=== PATIENT | female | born 1950 | race Two or more races ===

== ENCOUNTER 2017-08-10 15:57 | Inpatient (IN) | payer OTHER ==
[2017-08-10] MEDS ORDERED: SODIUM CHLORIDE 0.9% 1000 ML INFUS.BAG IV ONE (16:19)
--- NOTE | 2017-08-10 16:21 | PDOC ---
Rapid Medical Evaluation Chief Complaint: Wound Infection Time Seen by Provider: 08/10/17 16:17 Medical Evaluation: Allergies Allergy/AdvReac Type Severity Reaction Status Date / Time Penicillins Allergy Verified 08/10/17 16:16 08/10/17 16:17 I have performed a brief in-person evaluation of this patient. The patient presents with a chief complaint of: diabetic foot ulcer x > 1 month , sent in from wound care for admission, R big toe and foot, denies fever, chills, N/V/D Pertinent physical exam findings: VSS I have ordered the following: labs, ekg The patient will proceed to the ED for further evaluation. Discharge Disposition - Diagnosis Wound infection - Referrals - Patient Instructions - Post Discharge Activity
[2017-08-10 19:06] LABS: BASO % 0.4 % (0-2.0); EOS % 1.3 % (0-4.5); HEMOGLOBIN 12.7 GM/dL (10.7-15.3); LYMPH % 43.2 % (8-40); MCH 29.3 pg (25.7-33.7); MCHC 33.5 g/dl (32.0-36.0); MEAN CELL VOLUME 87.5 fl (80-96); MEAN PLT VOLUME 8.6 fl (7.5-11.1); MONO % 8.3 % (3.8-10.2); NEUT % 46.8 % (42.8-82.8); PLATELET COUNT 282 K/MM3 (134-434); RBC 4.34 M/mm3 (3.60-5.2); RDW 14.3 % (11.6-15.6); WHITE BLOOD COUNT 10.6 K/mm3 (4.0-10.0)
[2017-08-10] MEDS ORDERED: CLINDAMYCIN 600MG PREMIX IVPB 600 MG/50 ML BAG IVPB ONE ×2 (19:22→20:02)
[2017-08-10 19:33] LABS: INR 1.11 (0.82-1.09); PROTHROMBIN TIME (PATIENT) 12.5 SEC (9.98-11.88)
[2017-08-10 19:35] LABS: ACTIVATED PTT 29.8 SECONDS (26.9-34.4)
[2017-08-10 19:42] LABS: ALBUMIN 3.8 g/dl (3.4-5.0); ANION GAP 8 (8-16); BILIRUBIN,TOTAL 1.1 mg/dL (0.2-1.0); BLOOD UREA NITROGEN 22 mg/dL (7-18); CHLORIDE 98 mmol/L (98-107); CO2 25 mmol/L (21-32); CREATININE 1.3 mg/dL (0.55-1.02); SGOT/AST 20 U/L (15-37); SGPT/ALT 34 U/L (12-78); SODIUM 131 mmol/L (136-145); TOT PROT 8.1 g/dl (6.4-8.2)
[2017-08-10 19:43] LABS: ALK PHOS 104 U/L (45-117)
[2017-08-10 19:46] LABS: GLUCOSE,RANDOM 490 mg/dL (74-106)
[2017-08-10] MEDS ORDERED: SODIUM CHLORIDE 1,000 ML IV STA (20:31)
--- NOTE | 2017-08-10 21:20 | PDOC ---
History of Present Illness - General History Source: Patient Exam Limitations: Language Barrier - History of Present Illness Initial Comments: 08/10/17 21:26 The patient is a 67 year old female, with a significant past medical history of diabetes, bipolar/schizophrenia, who presents to the emergency department sent by wound care for evaluation of a non-healing ulcer. The patient had this wound to her right great toe for about a month. The patient states she was sent for admission to have an MRI and rule out osteomyelitis. The patient denies chest pain, shortness of breath, headache and dizziness. The patient denies fever, chills, nausea, vomit, diarrhea and constipation. The patient denies dysuria, frequency, urgency and hematuria. Allergies: Penicillins PCP - Dr. Mckinnon <Rachael Hartley - Last Filed: 08/10/17 21:25> <Erin Marcus - Last Filed: 08/10/17 21:46> - General Chief Complaint: Wound Infection Stated Complaint: PCP SENT FOR ADMIN Time Seen by Provider: 08/10/17 16:17 Past History <Rachael Hartley - Last Filed: 08/10/17 21:25> - Past Medical History COPD: No Diabetes: Yes Psychiatric Problems: Yes (schizoph and paranoid) - Suicide/Smoking/Psychosocial Hx Smoking History: Never smoked Have you smoked in the past 12 months: No Information on smoking cessation initiated: No Hx Alcohol Use: No Drug/Substance Use Hx: No Substance Use Type: None <Erin Marcus - Last Filed: 08/10/17 21:46> - Past Medical History Allergies/Adverse Reactions: Allergies Allergy/AdvReac Type Severity Reaction Status Date / Time Penicillins Allergy Verified 08/10/17 16:16 Home Medications: Ambulatory Orders Aspirin 81 mg PO DAILY 08/10/17 Insulin (Novolog) [Novolog Flexpen] 0 units SQ ACHS PRN 08/10/17 Insulin Glargine,Hum.rec.anlog [Lantus Solostar PEN (NF)] 60 units SQ BID Metformin HCl [Glucophage] 1,000 mg PO DAILY 08/10/17 Risperidone Microspheres [Risperdal Consta] 25 mg IM ASDIR 08/10/17 Rosuvastatin [Crestor -] 5 mg PO HS 08/10/17 Sitagliptin Phosphate [Januvia] mg PO DAILY@0700 08/10/17 Review of Systems - Review of Systems Able to Perform ROS?: Yes Comments:: 08/10/17 21:26 CONSTITUTIONAL: Absent: fever, no chills, no fatigue EYES: Absent: visual changes ENT: Absent: ear pain, no sore throat CARDIOVASCULAR: Absent: chest pain, no palpitations RESPIRATORY: Absent: cough, no SOB GI: Absent: abdominal pain, no nausea, no vomiting, no constipation, no diarrhea GENITOURINARY: Absent: dysuria, no frequency, no hematuria MUSCULOSKELETAL: (+) pain to right toes. Absent: back pain, no myalgia SKIN: (+) non-healing wound to right foot. Absent: rash NEURO: Absent: headache <Rachael Hartley - Last Filed: 08/10/17 21:25> *Physical Exam - Vital Signs Last Vital Signs Temp Pulse Resp BP Pulse Ox 97.4 F L 71 18 149/84 100 08/10/17 16:16 08/10/17 16:16 08/10/17 16:16 08/10/17 16:16 08/10/17 16:16 - Physical Exam Comments: 08/10/17 21:27 GENERAL: Well-appearing, well-nourished. No apparent distress. HEENT: Normocephalic, atraumatic. PERRL, EOM intact. CARDIOVASCULAR: Normal S1, S2. Regular rate and rhythm. PULMONARY: Clear to auscultation bilaterally. ABDOMEN: Soft, non-distended, non-tender. EXTREMITIES: Normal ROM in all four extremities. No gross deformities. SKIN: (+) wound to right 2nd toe without increased warmth, erythema, or tenderness. No drainage or fluctuance. Warm, dry. No rash NEUROLOGICAL: No focal neurological deficits. <Rachael Hartley - Last Filed: 08/10/17 21:25> - Vital Signs Last Vital Signs Temp Pulse Resp BP Pulse Ox 97.4 F L 71 18 149/84 100 08/10/17 16:16 08/10/17 16:16 08/10/17 16:16 08/10/17 16:16 08/10/17 16:16 <Erin Marcus - Last Filed: 08/10/17 21:46> ED Treatment Course - LABORATORY CBC & Chemistry Diagram: 08/10/17 18:43 08/10/17 18:43 - ADDITIONAL ORDERS Additional order review: Laboratory Results 08/10/17 08/10/17 08/10/17 18:43 18:43 18:43 PT with INR 12.50 H INR 1.11 PTT (Actin FS) 29.8 Sodium 131 L Potassium 5.0 Chloride 98 Carbon Dioxide 25 Anion Gap 8 BUN 22 H Creatinine 1.3 H Creat Clearance w eGFR 40.98 Random Glucose 490 H* Calcium 9.0 Total Bilirubin 1.1 H AST 20 ALT 34 Alkaline Phosphatase 104 C-Reactive Protein 0.5 H Total Protein 8.1 Albumin 3.8 08/10/17 18:43 RBC 4.34 MCV 87.5 MCHC 33.5 RDW 14.3 MPV 8.6 Neutrophils % 46.8 Lymphocytes % 43.2 H Monocytes % 8.3 Eosinophils % 1.3 Basophils % 0.4 - Medications Given in the ED: ED Medications Discontinued Medications Generic Name Dose Route Start Last Admin Trade Name Freq PRN Reason Stop Dose Admin Clindamycin Phosphate 600 mg in 50 mls @ 100 mls/hr 08/10/17 19:22 08/10/17 20:00 Cleocin 600 Mg Premix Ivpb - IVPB 08/10/17 19:51 100 mls/hr ONCE ONE Administration Sodium Chloride 1,000 ml 08/10/17 16:19 08/10/17 19:02 Normal Saline - IV 08/10/17 16:20 1,000 ml ONCE ONE Administration <Rachael Hartley - Last Filed: 08/10/17 21:25> - LABORATORY CBC & Chemistry Diagram: 08/10/17 18:43 08/10/17 18:43 - ADDITIONAL ORDERS Additional order review: Laboratory Results 08/10/17 08/10/17 08/10/17 18:43 18:43 18:43 PT with INR 12.50 H INR 1.11 PTT (Actin FS) 29.8 Sodium 131 L Potassium 5.0 Chloride 98 Carbon Dioxide 25 Anion Gap 8 BUN 22 H Creatinine 1.3 H Creat Clearance w eGFR 40.98 Random Glucose 490 H* Calcium 9.0 Total Bilirubin 1.1 H AST 20 ALT 34 Alkaline Phosphatase 104 C-Reactive Protein 0.5 H Total Protein 8.1 Albumin 3.8 08/10/17 18:43 RBC 4.34 MCV 87.5 MCHC 33.5 RDW 14.3 MPV 8.6 Neutrophils % 46.8 Lymphocytes % 43.2 H Monocytes % 8.3 Eosinophils % 1.3 Basophils % 0.4 - RADIOLOGY Radiology Studies Ordered: Category Date Time Status CHEST - PA [RAD] Stat Radiology 08/10/17 19:17 Ordered - Medications Given in the ED: ED Medications Discontinued Medications Generic Name Dose Route Start Last Admin Trade Name Norma PRN Reason Stop Dose Admin Clindamycin Phosphate 600 mg in 50 mls @ 100 mls/hr 08/10/17 19:22 08/10/17 20:00 Cleocin 600 Mg Premix Ivpb - IVPB 08/10/17 19:51 100 mls/hr ONCE ONE Administration Sodium Chloride 1,000 ml 08/10/17 16:19 08/10/17 19:02 Normal Saline - IV 08/10/17 16:20 1,000 ml ONCE ONE Administration <Erin Marcus - Last Filed: 08/10/17 21:46> *DC/Admit/Observation/Transfer - Attestations Scribe Attestion: 08/10/17 21:28 Documentation prepared by Rachael Hartley, acting as medical liaison for Erin Marcus MD <Rachael Hartley - Last Filed: 08/10/17 21:25> - Discharge Dispostion Admit: Yes <Erin Marcus - Last Filed: 08/10/17 21:46> Diagnosis at time of Disposition: Diabetic foot infection, Hyperglycemia - Referrals Referrals: Kwabena Mckinnon MD [Primary Care Provider] - - Patient Instructions - Post Discharge Activity
[2017-08-10] MEDS ORDERED: INSULIN (NOVOLOG) ASPART 100 UNITS/ML 10ML VIAL SQ ONE (21:58)
[2017-08-10] MEDS ORDERED: INSULIN REGULAR HUMAN 100 UNITS/ML *VIAL ONE (22:24)
--- NOTE | 2017-08-10 22:39 | PDOC ---
*Physical Exam - Vital Signs Last Vital Signs Temp Pulse Resp BP Pulse Ox 97.4 F L 71 18 149/84 100 08/10/17 16:16 08/10/17 16:16 08/10/17 16:16 08/10/17 16:16 08/10/17 16:16 ED Treatment Course - LABORATORY CBC & Chemistry Diagram: 08/10/17 18:43 08/10/17 18:43 - ADDITIONAL ORDERS Additional order review: Laboratory Results 08/10/17 08/10/17 08/10/17 18:43 18:43 18:43 PT with INR 12.50 H INR 1.11 PTT (Actin FS) 29.8 Sodium 131 L Potassium 5.0 Chloride 98 Carbon Dioxide 25 Anion Gap 8 BUN 22 H Creatinine 1.3 H Creat Clearance w eGFR 40.98 Random Glucose 490 H* Calcium 9.0 Total Bilirubin 1.1 H AST 20 ALT 34 Alkaline Phosphatase 104 C-Reactive Protein 0.5 H Total Protein 8.1 Albumin 3.8 08/10/17 18:43 RBC 4.34 MCV 87.5 MCHC 33.5 RDW 14.3 MPV 8.6 Neutrophils % 46.8 Lymphocytes % 43.2 H Monocytes % 8.3 Eosinophils % 1.3 Basophils % 0.4 - RADIOLOGY Radiology Studies Ordered: Category Date Time Status CHEST - PA [RAD] Stat Radiology 08/10/17 19:17 Taken - Medications Given in the ED: ED Medications Discontinued Medications Generic Name Dose Route Start Last Admin Trade Name Freq PRN Reason Stop Dose Admin Clindamycin Phosphate 600 mg in 50 mls @ 100 mls/hr 08/10/17 19:22 08/10/17 20:00 Cleocin 600 Mg Premix Ivpb - IVPB 08/10/17 19:51 100 mls/hr ONCE ONE Administration Sodium Chloride 1,000 mls @ 1,000 mls/hr 08/10/17 20:31 08/10/17 20:38 Normal Saline - IV 08/10/17 21:30 1,000 mls/hr ASDIR STA Administration Sodium Chloride 1,000 ml 08/10/17 16:19 08/10/17 19:02 Normal Saline - IV 08/10/17 16:20 1,000 ml ONCE ONE Administration Medical Decision Making - Medical Decision Making 08/10/17 22:29 67 [address] female seen in Dr Glaser's office and sent to wound care for concern of dry gangrene/ostero of right first and second toe -pt came w daughter . Pt speaks Cuban and has PMH significantly for diabetes and schizophrenia and is noncompliant w meds -pt started on antibiotics and is admitted to med/surg Wound care requested rt foot MRI during her admission,consult w Dr Sandra Jerez - *DC/Admit/Observation/Transfer Diagnosis at time of Disposition: Diabetic foot infection, Hyperglycemia - Discharge Dispostion Decision to Admit order Date/Time: Decision to Admit Order Category Date Time Status Decision to Admit to Hospital Routine Admission 08/10/17 21:46 Active - Referrals Referrals: Kwabena Mckinnon MD [Primary Care Provider] - - Patient Instructions - Post Discharge Activity
--- NOTE | 2017-08-10 23:22 | HP ---
CHIEF COMPLAINT: Foot wound PCP: Pratibha HISTORY OF PRESENT ILLNESS: This is a 67 year old female with poorly controlled DM and schizophrenia who presented to the ED from wound clinic for a wound on second toe right foot. The daughter reports the patient has had the wound since she returned from [facility] on 07/17. Pt states that she has a "little" pain. she denies fevers. ER course was notable for: (1) WBC 10.6 (2) Glucose 490 Recent Travel: [facility] from May to 07/17 PAST MEDICAL HISTORY: DM, HLD, schizophrenia PAST SURGICAL HISTORY: uterine surgery for bleeding. Pt is unsure if she had a hysterectomy or not Social History: Smoking: pt denies Alcohol: pt denies Drugs: pt denies Family History: mother alive with heart problems father age 70, DM, CKD, heart siblings with mult medical problems but unclear what 3 children, 1 daughter with schizophrenia. Allergies Penicillins Allergy (Verified 08/10/17 16:16) HOME MEDICATIONS: 3 Medication Instructions Recorded Aspirin 81 mg PO DAILY 08/10/17 Insulin (Novolog) [Novolog Flexpen] 0 units SQ ACHS PRN 08/10/17 Insulin Glargine,Hum.rec.anlog 60 units SQ BID 08/10/17 [Lantus Solostar PEN (NF)] Metformin HCl [Glucophage] 1,000 mg PO DAILY 08/10/17 Risperidone Microspheres 25 mg IM ASDIR 08/10/17 [Risperdal Consta] Rosuvastatin [Crestor -] 5 mg PO HS 08/10/17 Sitagliptin Phosphate [Januvia] mg PO DAILY@0700 08/10/17 REVIEW OF SYSTEMS CONSTITUTIONAL: Absent: fever, chills, diaphoresis, generalized weakness, malaise, loss of appetite, weight change HEENT: Absent: rhinorrhea, nasal congestion, throat pain, throat swelling, difficulty swallowing, mouth swelling, ear pain, eye pain, visual changes CARDIOVASCULAR: Absent: chest pain, syncope, palpitations, irregular heart rate, lightheadedness , peripheral edema RESPIRATORY: Absent: cough, shortness of breath, dyspnea with exertion, orthopnea, wheezing, stridor, hemoptysis GASTROINTESTINAL: Absent: abdominal pain, abdominal distension, nausea, vomiting, diarrhea, constipation, melena, hematochezia GENITOURINARY: Absent: dysuria, frequency, urgency, hesitancy, hematuria, flank pain, genital pain MUSCULOSKELETAL: Absent: myalgia, arthralgia, joint swelling, back pain, neck pain SKIN: Present: wound right foot Absent: rash, itching, pallor HEMATOLOGIC/IMMUNOLOGIC: Absent: easy bleeding, easy bruising, lymphadenopathy, frequent infections ENDOCRINE: Absent: unexplained weight gain, unexplained weight loss, heat intolerance, cold intolerance NEUROLOGIC: Absent: headache, focal weakness or paresthesias, dizziness, unsteady gait, seizure, mental status changes, bladder or bowel incontinence PSYCHIATRIC: Absent: anxiety, depression, suicidal or homicidal ideation, hallucinations. PHYSICAL EXAMINATION Vital Signs - 24 hr 3 08/10/17 16:16 Temperature 97.4 F L Pulse Rate 71 Respiratory 18 Rate Blood Pressure 149/84 O2 Sat by Pulse 100 Oximetry (%) GENERAL: Awake, alert, and fully oriented, in no acute distress. HEAD: Normal with no signs of trauma. EYES: Pupils equal, round and reactive to light, extraocular movements intact, sclera anicteric, conjunctiva clear. No lid lag. EARS, NOSE, THROAT: Ears normal, nares patent, oropharynx clear without exudates. Moist mucous membranes. NECK: Normal range of motion, supple without lymphadenopathy, JVD, or masses. LUNGS: Breath sounds equal, clear to auscultation bilaterally. No wheezes, and no crackles. No accessory muscle use. HEART: Regular rate and rhythm, normal S1 and S2 without murmur, rub or gallop. ABDOMEN: Soft, nontender, not distended, normoactive bowel sounds, no guarding, no rebound, no masses. No hepatomegaly or splenomegaly. MUSCULOSKELETAL: Normal range of motion at all joints. No bony deformities or tenderness. No CVA tenderness. UPPER EXTREMITIES: 2+ pulses, warm, well-perfused. No cyanosis. No clubbing. No peripheral edema. LOWER EXTREMITIES: 2+ pulses, warm, well-perfused. No calf tenderness. No peripheral edema. NEUROLOGICAL: Cranial nerves II-XII intact. Normal speech. Normal gait. PSYCHIATRIC: Cooperative. Good eye contact. Appropriate mood and affect. SKIN: Warm, dry, normal turgor, no rashes or lesions noted, normal capillary refill. right foot, 2nd toe medial aspect noted with small ulcer, open area 0.3cm x 0.3cm, surrounding hyperkeratotic, dry area 0.8 x 1.3cm Laboratory Results - last 24 hr 3 08/10/17 08/10/17 08/10/17 18:43 18:43 18:43 WBC 10.6 H RBC 4.34 Hgb 12.7 Hct 38.0 MCV 87.5 MCH 29.3 MCHC 33.5 RDW 14.3 Plt Count 282 MPV 8.6 Neutrophils % 46.8 Lymphocytes % 43.2 H Monocytes % 8.3 Eosinophils % 1.3 Basophils % 0.4 PT with INR 12.50 H INR 1.11 PTT (Actin FS) 29.8 Sodium 131 L Potassium 5.0 Chloride 98 Carbon Dioxide 25 Anion Gap 8 BUN 22 H Creatinine 1.3 H Creat Clearance w eGFR 40.98 Random Glucose 490 H* Calcium 9.0 Total Bilirubin 1.1 H AST 20 ALT 34 Alkaline Phosphatase 104 C-Reactive Protein 0.5 H Total Protein 8.1 Albumin 3.8 CXR and Foot XR pending ASSESSMENT/PLAN: 67yF with PMH DM, HLD, schizophrenia presented to the ED from wound care clinic with nonhealing wound to right second toe Diabetic ulcer R 2nd toe - cont clindamycin - Vascular surgery consult - podiatry consult - tighter gluocose control needed - foot xray pending - MRI to r/o osteo ordered. DM - cont home lantus 60u BID - BGM AC/HS with sliding scale novolog HLD - pt on crestor at home, daughter unsure of dose, will start at 5mg, when daughter brings in med list, can adjust DVT PPX - defer as anticipated LOS at this time is less than 48h. reeval if MRI with osteo and LOS extends beyond FEN - tolerating po fluids - BMP in am - diabetic diet. Dispo: Pt currently requires furhter observation and treatment for management of her emergent condition. Visit type - Emergency Visit Emergency Visit: Yes ED Registration Date: 08/10/17 Care time: The patient presented to the Emergency Department on the above date and was hospitalized for further evaluation of their emergent condition. - New Patient This patient is new to me today: Yes Date on this admission: 08/10/17 - Critical Care Critical Care patient: No
[2017-08-10] MEDS ORDERED: RISPERIDONE MICROSPHERES 25 MG/2 ML VIAL IM SCH (23:45)
[2017-08-10] MEDS ORDERED: INSULIN DETEMIR 100 UNITS/ML MDV SQ ONE (23:51)
[2017-08-11] MEDS: INSULIN DETEMIR 100 UNITS/ML MDV SQ SCH ×2 (00:05→10:11)
[2017-08-11] MEDS ORDERED: INSULIN (NOVOLOG) ASPART 100 UNITS/ML 10ML VIAL SQ ONE (01:41)
[2017-08-11] MEDS: CLINDAMYCIN 600MG PREMIX IVPB 600 MG/50 ML BAG IVPB SCH ×3 (03:09→15:52)
[2017-08-11] MEDS ORDERED: CLINDAMYCIN 600MG PREMIX IVPB 600 MG/50 ML BAG IVPB ONE (03:10)
[2017-08-11] MEDS: INSULIN SLIDING SCALE (NOVOLOG) 1 VIAL SQ SCH ×3 (06:59→18:52)
[2017-08-11] MEDS ORDERED: sitaGLIPtin PHOSPHATE 100 MG TABLET (FP) PO SCH (07:30)
[2017-08-11 07:44] LABS: BASO % 0.4 % (0-2.0); EOS % 1.8 % (0-4.5); HEMATOCRIT 39.5 % (32.4-45.2); HEMOGLOBIN 12.9 GM/dL (10.7-15.3); LYMPH % 36.4 % (8-40); MCH 28.4 pg (25.7-33.7); MCHC 32.6 g/dl (32.0-36.0); MEAN PLT VOLUME 8.5 fl (7.5-11.1); MONO % 8.6 % (3.8-10.2); NEUT % 52.8 % (42.8-82.8); PLATELET COUNT 279 K/MM3 (134-434); RBC 4.53 M/mm3 (3.60-5.2); RDW 13.9 % (11.6-15.6); WHITE BLOOD COUNT 7.5 K/mm3 (4.0-10.0)
[2017-08-11 08:07] LABS: CHLORIDE 102 mmol/L (98-107); POTASSIUM 4.4 mmol/L (3.5-5.1); SODIUM 136 mmol/L (136-145)
--- NOTE | 2017-08-11 08:07 | PN ---
Progress Note, Physician Chief Complaint: 67 y.o F with schozophrenia and poorly controlled DM 2 was sent for admission and IV Antibiotics from the [facility]. The week before the patient was seen in the office after return from [facility] with the new foot ulcers-on the bunion and 2nd toe of the right foot. PO Keflex was started and the patient was referred to [facility]. She did not have fevers, leukocytosis or pain. History of Present Illness: Type 2 DM-poorly controlled, non -compliant patient HLD Diabetic retionopathy Schizophrenia ob Risperdal Consta 25 mg IM Q 2 weeks - Current Medication List Current Medications: Active Medications Aspirin (Asa -) 81 mg PO DAILY [facility] Cefazolin Sodium (Ancef 1gm Ivpb (Pre-Docked)) 1 gm IVPB Q8H [facility] Clindamycin Phosphate (Cleocin 600 Mg Premix Ivpb -) 600 mg in 50 mls @ 100 mls /hr IVPB Q6H-IV BLACK Last Admin: 08/11/17 03:09 Dose: 100 mls/hr Insulin Aspart (Novolog Vial Sliding Scale -) 1 vial SQ HS [facility] PRN Reason: Protocol Insulin Aspart (Novolog Vial Sliding Scale -) 1 vial SQ TIDAC [facility] PRN Reason: Protocol Last Admin: 08/11/17 06:59 Dose: 8 unit Insulin Detemir (Levemir Vial) 60 units SQ BID [facility] Last Admin: 08/11/17 00:05 Dose: 60 units Metformin HCl (Glucophage -) 1,000 mg PO BID@0700,1630 [facility] Risperidone (Risperdal Consta 25mg -) 25 mg IM ASDIR [facility] Rosuvastatin Calcium (Crestor -) 5 mg PO HS [facility] Sitagliptin Phosphate (Januvia -) 100 mg PO DAILY@0700 [facility] - Objective Vital Signs: Vital Signs Temperature 97.4 F L 08/10/17 16:16 Pulse Rate 71 08/10/17 16:16 Respiratory Rate 18 08/10/17 16:16 Blood Pressure 149/84 08/10/17 16:16 O2 Sat by Pulse Oximetry (%) 100 08/10/17 16:16 Constitutional: Yes: No Distress, Anxious Eyes: Yes: Conjunctiva Clear, EOM Intact HENT: Yes: Atraumatic, Normocephalic Neck: Yes: Supple, Trachea Midline. No: Decreased ROM, Lymphadenopathy Cardiovascular: Yes: Regular Rate and Rhythm, S1, S2. No: Bradycardia, Tachycardia Respiratory: Yes: Regular, CTA Bilaterally Gastrointestinal: Yes: Normal Bowel Sounds, Soft. No: Abdomen, Obese, Ascites ...Rectal Exam: Yes: Deferred Genitourinary: No: Anuria, Bladder Distention Musculoskeletal: Yes: WNL Extremities: No: Calf Tenderness, Cold, Cyanosis Edema: No Integumentary: Yes: Other (Dry ulcer right 2nd toe and right bunion) Neurological: Yes: Alert, Oriented, Cran Nerves II-XII Intact. No: Aphasia, Asterixis, Ataxia, Confusion, Dysarthria, Facial Droop, Lethargy ...Motor Strength: WNL Psychiatric: Yes: Alert, Oriented. No: Agitated, Suicidal Ideation Labs: CBC, BMP 08/11/17 06:12 INR, PTT INR 1.11 (0.82-1.09) 08/10/17 18:43 Laboratory Results - last 24 hr 08/10/17 08/10/17 08/10/17 18:43 18:43 18:43 WBC 10.6 H RBC 4.34 Hgb 12.7 Hct 38.0 MCV 87.5 MCH 29.3 MCHC 33.5 RDW 14.3 Plt Count 282 MPV 8.6 Neutrophils % 46.8 Lymphocytes % 43.2 H Monocytes % 8.3 Eosinophils % 1.3 Basophils % 0.4 PT with INR 12.50 H INR 1.11 PTT (Actin FS) 29.8 Sodium 131 L Potassium 5.0 Chloride 98 Carbon Dioxide 25 Anion Gap 8 BUN 22 H Creatinine 1.3 H Creat Clearance w eGFR 40.98 POC Glucometer Random Glucose 490 H* Calcium 9.0 Total Bilirubin 1.1 H AST 20 ALT 34 Alkaline Phosphatase 104 C-Reactive Protein Total Protein 8.1 Albumin 3.8 08/10/17 08/11/17 08/11/17 18:43 01:30 06:12 WBC 7.5 RBC 4.53 Hgb 12.9 Hct 39.5 MCV 87.0 MCH 28.4 MCHC 32.6 RDW 13.9 Plt Count 279 MPV 8.5 Neutrophils % 52.8 Lymphocytes % 36.4 Monocytes % 8.6 Eosinophils % 1.8 Basophils % 0.4 PT with INR INR PTT (Actin FS) Sodium Potassium Chloride Carbon Dioxide Anion Gap BUN Creatinine Creat Clearance w eGFR POC Glucometer [phone] Random Glucose Calcium Total Bilirubin AST ALT Alkaline Phosphatase C-Reactive Protein 0.5 H Total Protein Albumin 08/11/17 06:57 WBC RBC Hgb Hct MCV MCH MCHC RDW Plt Count MPV Neutrophils % Lymphocytes % Monocytes % Eosinophils % Basophils % PT with INR INR PTT (Actin FS) Sodium Potassium Chloride Carbon Dioxide Anion Gap BUN Creatinine Creat Clearance w eGFR POC Glucometer [phone] Random Glucose Calcium Total Bilirubin AST ALT Alkaline Phosphatase C-Reactive Protein Total Protein Albumin Problem List - Problems (1) Diabetic foot infection Assessment/Plan: CRP 0.5=unlikely osteo. Vascular F/u Podiatry. Code(s): E11.69 - TYPE 2 DIABETES MELLITUS WITH OTHER SPECIFIED COMPLICATION; L08.9 - LOCAL INFECTION OF THE SKIN AND SUBCUTANEOUS TISSUE, UNSP (2) Hyperglycemia Assessment/Plan: Levemir, short acting Insulin, BGM's Re-start Metformin, Januvia Diabetic diet Code(s): R73.9 - HYPERGLYCEMIA, UNSPECIFIED
[2017-08-11 08:12] LABS: ANION GAP 7 (8-16); BLOOD UREA NITROGEN 18 mg/dL (7-18); CALCIUM 8.6 mg/dL (8.5-10.1); CO2 27 mmol/L (21-32); CREATININE 0.9 mg/dL (0.55-1.02); GLUCOSE,RANDOM 289 mg/dL (74-106); PHOSPHOROUS 3.9 mg/dL (2.5-4.9)
[2017-08-11] MEDS ORDERED: ASPIRIN 81 MG CHEWABLE TABLETS ONE (09:27)
[2017-08-11] MEDS: ASPIRIN 81 MG CHEWABLE TABLETS PO SCH (09:40)
[2017-08-11] MEDS: CEFAZOLIN 1 GM PUSH 1 GM/10 ML DISP.SYRIN IVPUSH SCH ×2 (09:40→18:53)
[2017-08-11] MEDS ORDERED: CLINDAMYCIN PHOSPHATE 600 MG/4 ML VIAL ONE (09:41)
[2017-08-11] MEDS ORDERED: INSULIN DETEMIR 100 UNITS/ML MDV SQ ONE (10:06)
--- NOTE | 2017-08-11 10:15 | EKG ---
Test Reason : Blood Pressure : / mmHG Vent. Rate : 073 BPM Atrial Rate : 073 BPM P-R Int : 182 ms QRS Dur : 070 ms QT Int : 386 ms P-R-T Axes : 053 058 041 degrees QTc Int : 425 ms POOR DATA QUALITY, INTERPRETATION MAY BE ADVERSELY AFFECTED NORMAL SINUS RHYTHM POSSIBLE LEFT ATRIAL ENLARGEMENT CANNOT RULE OUT ANTERIOR INFARCT , AGE UNDETERMINED ABNORMAL ECG NO PREVIOUS ECGS AVAILABLE Confirmed by ROSE STEPHENS, JOSEPH ([id number] on 08/11/2017 10:14:47 AM Referred By: Confirmed By:JOSEPH ROSE MD
--- NOTE | 2017-08-11 14:15 | CONSULT ---
Consult - Past Medical History CRANIOLOGIST: Yes: Peripheral Neuropathy Psych: Yes: Schizophrenia, Other (paranoia) Endocrine: Yes: Diabetes Mellitus - Alcohol/Substance Use Hx Alcohol Use: No - Smoking History Smoking history: Never smoked Have you smoked in the past 12 months: No - Social History Usual Living Arrangement: With Child ADL: Family Assistance History of Recent Travel: No Home Medications - Allergies Allergies/Adverse Reactions: Allergies Allergy/AdvReac Type Severity Reaction Status Date / Time Penicillins Allergy Verified 08/10/17 17:18 - Home Medications Home Medications: Ambulatory Orders Aspirin [ASA -] 81 mg PO DAILY #0 tab.chew 10/26/13 Gabapentin 100 mg PO TID #0 10/26/13 Insulin Glargine,Hum.rec.anlog [Lantus Solostar PEN -] 60 units SQ BID #0 Insulin Lispro [Humalog] 0 unit SQ DAILY #0 10/26/13 Risperidone 3 mg PO HS #0 10/26/13 Rosuvastatin Calcium [Crestor] 5 mg PO DAILY #0 10/26/13 Sitagliptin Phosphate [Januvia -] 100 mg PO DAILY@0700 #0 10/26/13 metFORMIN HCL [Glucophage] 1,000 mg PO BID #0 10/26/13 Aspirin 81 mg PO DAILY 08/10/17 Insulin (Novolog) [Novolog Flexpen] 0 units SQ ACHS PRN 08/10/17 Insulin Glargine,Hum.rec.anlog [Lantus Solostar PEN (NF)] 60 units SQ BID Metformin HCl [Glucophage] 1,000 mg PO DAILY 08/10/17 Risperidone Microspheres [Risperdal Consta] 25 mg IM ASDIR 08/10/17 Rosuvastatin [Crestor -] 5 mg PO HS 08/10/17 Sitagliptin Phosphate [Januvia] mg PO DAILY@0700 08/10/17 Family Disease History - Family Disease History Family Disease History: Diabetes: Father (believes that her father could have had kidney disease, but cannot specify) Physical Exam Vital Signs: Vital Signs Temperature 97.4 F L 08/10/17 16:16 Pulse Rate 71 08/10/17 16:16 Respiratory Rate 18 08/10/17 16:16 Blood Pressure 149/84 08/10/17 16:16 O2 Sat by Pulse Oximetry (%) 100 02/13/18 16:16 Labs: CBC, BMP 08/11/17 06:12 08/11/17 06:12 Assessment/Plan Vascular Surgery 67 y.o F with schozophrenia and poorly controlled DM 2 was sent for admission and IV Antibiotics from the [facility]. The week before the patient was seen in the office after return from [facility] with the new foot ulcers-on the bunion and 2nd toe of the right foot. PO Keflex was started and the patient was referred to [facility]. She did not have fevers, leukocytosis or pain. History of Present Illness: Type 2 DM-poorly controlled, non -compliant patient HLD Diabetic retionopathy Schizophrenia ob Risperdal Consta 25 mg IM Q 2 weeks PE Head - NC/At Lung - CTA heart - RRR abd - soft,nt,nd ext - right foot -- second toe ulcer , medial toe -- down to bone. Toe is deformed. Pt has strong palpable DP pulse. A/P Right second toe ulcer 1. Good strong DP pulse in foot. 2. With toe deformity, strong suspicion of osteo -- MRI is ordered. Will follow Kelvin Jerez DO
[2017-08-11 18:15] VITALS: BMI 27.9
[2017-08-11] MEDS: metFORMIN HCL 500 MG TABLET (FP) PO SCH (18:53)
[2017-08-11] MEDS ORDERED: INSULIN SLIDING SCALE (NOVOLOG) 1 VIAL SQ SCH (22:00)
[2017-08-12] MEDS: CLINDAMYCIN 600MG PREMIX IVPB 600 MG/50 ML BAG IVPB SCH ×2 (01:53→04:33)
[2017-08-12] MEDS: CEFAZOLIN 1 GM PUSH 1 GM/10 ML DISP.SYRIN IVPUSH SCH (01:54)
[2017-08-12] MEDS: INSULIN DETEMIR 100 UNITS/ML MDV SQ SCH ×2 (01:58→17:12)
[2017-08-12] MEDS: ROSUVASTATIN CA 5 MG TABLET (FP) PO SCH ×2 (03:07→21:30)
[2017-08-12] MEDS ORDERED: CLINDAMYCIN 600MG PREMIX IVPB 600 MG/50 ML BAG IVPB SCH (04:30)
[2017-08-12] MEDS: metFORMIN HCL 500 MG TABLET (FP) PO SCH ×2 (06:36→17:12)
[2017-08-12] MEDS: sitaGLIPtin PHOSPHATE 50 MG TABLET PO SCH (06:37)
[2017-08-12 07:34] LABS: BASO % 0.2 % (0-2.0); HEMATOCRIT 37.7 % (32.4-45.2); HEMOGLOBIN 12.4 GM/dL (10.7-15.3); MCH 28.3 pg (25.7-33.7); MCHC 32.8 g/dl (32.0-36.0); MEAN CELL VOLUME 86.2 fl (80-96); MEAN PLT VOLUME 8.2 fl (7.5-11.1); MONO % 8.5 % (3.8-10.2); NEUT % 60.3 % (42.8-82.8); PLATELET COUNT 272 K/MM3 (134-434); RBC 4.38 M/mm3 (3.60-5.2); RDW 14.6 % (11.6-15.6); WHITE BLOOD COUNT 9.1 K/mm3 (4.0-10.0)
[2017-08-12] MEDS: INSULIN SLIDING SCALE (NOVOLOG) 1 VIAL SQ SCH ×4 (08:00→21:36)
[2017-08-12 08:08] LABS: CHLORIDE 105 mmol/L (98-107); POTASSIUM 4.1 mmol/L (3.5-5.1); SODIUM 139 mmol/L (136-145)
[2017-08-12 08:20] LABS: ALBUMIN 3.5 g/dl (3.4-5.0); ALK PHOS 77 U/L (45-117); ANION GAP 9 (8-16); BILIRUBIN,TOTAL 0.6 mg/dL (0.2-1.0); BLOOD UREA NITROGEN 13 mg/dL (7-18); CALCIUM 8.7 mg/dL (8.5-10.1); CO2 25 mmol/L (21-32); CREATININE 0.9 mg/dL (0.55-1.02); GLUCOSE,RANDOM 132 mg/dL (74-106); SGOT/AST 18 U/L (15-37); SGPT/ALT 29 U/L (12-78); TOT PROT 7.7 g/dl (6.4-8.2)
--- NOTE | 2017-08-12 08:34 | PN ---
Progress Note (short form) - Note Progress Note: ID Consult dictated and discussed PMD regarding LLE callous ulcer in this nonadherant diabetic Selected Entries 08/12/17 06:43 Temperature 98.4 F Pulse Rate 83 Respiratory 20 Rate Blood Pressure 153/84 Microbiology 08/10/17 19:45 Blood - Peripheral Venous Blood Culture - Preliminary NO GROWTH OBTAINED AFTER 24 HOURS, INCUBATION TO CONTINUE FOR 4 DAYS. 08/10/17 19:37 Blood - Peripheral Venous Blood Culture - Preliminary NO GROWTH OBTAINED AFTER 24 HOURS, INCUBATION TO CONTINUE FOR 4 DAYS. Laboratory Tests 08/10/17 08/12/17 08/12/17 18:43 06:00 06:00 WBC 9.1 Hgb 12.4 Plt Count 272 ESR Pending C-Reactive Protein 0.5 H As discussed will order MRI though clinically wound seem unimpressive for infection cellulitis For now Ceftriaxone and metronidazole IF MRI neg can be discharged on po antibiotic few days Noe STEPHENS Problem List - Problems (1) Diabetic foot infection Code(s): E11.69 - TYPE 2 DIABETES MELLITUS WITH OTHER SPECIFIED COMPLICATION; L08.9 - LOCAL INFECTION OF THE SKIN AND SUBCUTANEOUS TISSUE, UNSP
--- NOTE | 2017-08-12 08:45 | PN ---
Progress Note, Physician Chief Complaint: ID and vascular surgery consults appreciated. Awaiting NRI foot-r/o osteomyelitis 2nd toe History of Present Illness: Type 2 DM-poorly controlled, non -compliant patient HLD Diabetic retionopathy Schizophrenia ob Risperdal Consta 25 mg IM Q 2 weeks - Current Medication List Current Medications: Active Medications Aspirin (Asa -) 81 mg PO DAILY [facility] Last Admin: 08/11/17 09:40 Dose: 81 mg Ceftriaxone Sodium 1 gm/ (Dextrose) 50 mls @ 100 mls/hr IVPB DAILY [facility] Metronidazole (Flagyl 500mg Premixed Ivpb -) 500 mg in 100 mls @ 100 mls/hr IVPB Q8H-IV [facility] Insulin Aspart (Novolog Vial Sliding Scale -) 1 vial SQ HS [facility] PRN Reason: Protocol Last Admin: 08/12/17 02:15 Dose: Not Given Insulin Aspart (Novolog Vial Sliding Scale -) 1 vial SQ TIDAC [facility] PRN Reason: Protocol Last Admin: 08/12/17 08:00 Dose: Not Given Insulin Detemir (Levemir Vial) 60 units SQ BID [facility] Last Admin: 08/12/17 01:58 Dose: 60 units Metformin HCl (Glucophage -) 1,000 mg PO BID@0700,1630 [facility] Last Admin: 08/12/17 06:36 Dose: 1,000 mg Risperidone (Risperdal Consta 25mg -) 25 mg IM ASDIR [facility] Rosuvastatin Calcium (Crestor -) 5 mg PO HS [facility] Last Admin: 08/12/17 03:07 Dose: 5 mg Sitagliptin Phosphate (Januvia -) 100 mg PO DAILY@0700 [facility] Last Admin: 08/12/17 06:37 Dose: 100 mg - Objective Vital Signs: Vital Signs Temperature 98.4 F 08/12/17 06:43 Pulse Rate 83 08/12/17 06:43 Respiratory Rate 20 08/12/17 06:43 Blood Pressure 153/84 08/12/17 06:43 O2 Sat by Pulse Oximetry (%) 99 08/11/17 21:00 Constitutional: Yes: No Distress, Calm Eyes: Yes: Conjunctiva Clear, EOM Intact HENT: Yes: Atraumatic, Normocephalic. No: Drooling Neck: Yes: Supple, Trachea Midline. No: Decreased ROM, Lymphadenopathy Cardiovascular: Yes: Regular Rate and Rhythm. No: Bradycardia, Tachycardia Respiratory: Yes: Regular, CTA Bilaterally. No: Accessory Muscle Use, Bradypnea Gastrointestinal: Yes: Normal Bowel Sounds, Soft. No: Abdomen, Obese, Ascites, Hepatomegaly, Palpable Mass, Splenomegaly, Tenderness, Tenderness, Rebound Genitourinary: No: Anuria Breast(s): Yes: WNL Musculoskeletal: Yes: Other (right5 buttock pain-mild) Edema: No Peripheral Pulses WNL: Yes Integumentary: Yes: Other (right bunion and 2nd toe ulcer) Wound/Incision: Yes: Clean/Dry Neurological: Yes: Alert, Oriented. No: Aphasia ...Motor Strength: WNL Psychiatric: Yes: Alert, Oriented. No: Agitated, Suicidal Ideation Labs: CBC, BMP 08/12/17 06:00 08/12/17 06:00 INR, PTT INR 1.11 (0.82-1.09) 08/10/17 18:43 Laboratory Results - last 24 hr 08/11/17 08/12/17 08/12/17 12:16 02:11 05:52 WBC RBC Hgb Hct MCV MCH MCHC RDW Plt Count MPV Neutrophils % Lymphocytes % Monocytes % Eosinophils % Basophils % Sodium Potassium Chloride Carbon Dioxide Anion Gap BUN Creatinine Creat Clearance w eGFR POC Glucometer [phone] 84 Random Glucose Calcium Total Bilirubin AST ALT Alkaline Phosphatase Total Protein Albumin 08/12/17 08/12/17 06:00 06:00 WBC 9.1 RBC 4.38 Hgb 12.4 Hct 37.7 MCV 86.2 MCH 28.3 MCHC 32.8 RDW 14.6 Plt Count 272 MPV 8.2 Neutrophils % 60.3 Lymphocytes % 30.0 Monocytes % 8.5 Eosinophils % 1.0 Basophils % 0.2 Sodium 139 Potassium 4.1 Chloride 105 Carbon Dioxide 25 Anion Gap 9 BUN 13 Creatinine 0.9 Creat Clearance w eGFR > 60 POC Glucometer Random Glucose 132 H Calcium 8.7 Total Bilirubin 0.6 D AST 18 ALT 29 Alkaline Phosphatase 77 Total Protein 7.7 Albumin 3.5 Problem List - Problems (1) Diabetic foot infection Assessment/Plan: IV Metronidazole, Ceftin Vascular F/u Podiatry. Code(s): E11.69 - TYPE 2 DIABETES MELLITUS WITH OTHER SPECIFIED COMPLICATION; L08.9 - LOCAL INFECTION OF THE SKIN AND SUBCUTANEOUS TISSUE, UNSP (2) Hyperglycemia Assessment/Plan: Levemir, short acting Insulin, BGM's Re-start Metformin, Januvia Diabetic diet Code(s): R73.9 - HYPERGLYCEMIA, UNSPECIFIED
--- NOTE | 2017-08-12 09:32 | CONS ---
DATE OF CONSULTATION: DATE OF DICTATION: 08/12/2017 HISTORY OF PRESENT ILLNESS: This is a 67-year-old female who I am asked to see for evaluation of a diabetic foot infection of her right metatarsal and 1st and 2nd toes. She is, according to Dr. Mckinnon, a non-adherent diabetic making appointments only infrequently with poor control of blood sugars, at times in the 500 level. She is supposed to be taking insulin, but again, her adherence is quite questionable. In June, she went to [facility] to vacation. Upon her return, she was seen by Pratibha for an ulcer between the right 1st and 2nd toes as well as a plantar wound in the area of a bunion. She had no fever or chills and was apparently treated with a course of oral antibiotics, Keflex. [facility] she was then in turn referred to the hospital for IV antibiotics. Her blood sugar on admission was noted to be 490. She had no fever, chills, or other systemic complaints and was empirically placed on clindamycin and cefazolin. PAST MEDICAL HISTORY: Schizophrenia, hyperlipidemia, diabetes. MEDICATIONS: Include insulin, aspirin, metformin, risperidone, Crestor, Januvia. ALLERGIES: To PENICILLIN, though tolerates cephalosporins. SOCIAL HISTORY: Denies smoking, alcohol, and drug use. She lives with her family. FAMILY HISTORY: Patient unable to provide. REVIEW OF SYSTEMS: All systems reviewed and noncontributory. PHYSICAL EXAMINATION: General: She was an alert female in no acute distress. Vital signs: The temperature was 98.4, pulse 83, blood pressure 153/84, respirations 20. Lungs: Clear to auscultation. Heart: S1, S2, regular rhythm, without audible murmur. Abdomen: Was normoactive bowel sounds. Soft, nontender. No organomegaly. Extremities: Revealed a right bunion with a callus, which was dry and a centrally dry ulcer of the right 2nd toe. LABORATORY DATA: The white count was 9.1 with a hemoglobin of 12.4. ESR is pending. CRP 0.5. Two sets of blood cultures with no growth. ASSESSMENT: Diabetic foot infection. Clinically, it does not seem severe with low suspicion for osteomyelitis. PLAN: Will empirically treat her with a combination of ceftriaxone and metronidazole pending her MRI to rule out osteomyelitis definitively. She has been seen in consultation by Dr. Jerez of Vascular Surgery and can be discharged assuming her MRI is negative with completion of oral antibiotics at home/Keflex. YENI TAVERA M.D. CHASITY/[id number]
[2017-08-12] MEDS: ASPIRIN 81 MG CHEWABLE TABLETS PO SCH (09:39)
[2017-08-12] MEDS: CEFTRIAXONE 1 G/50 ML PREMIX 50 ML IVPB SCH (12:34)
--- NOTE | 2017-08-12 14:35 | CONSULT ---
Consult - text type - Consultation Consultation Note: Patient seen Wednesday in Clinic. Referred to ER for work up of OM and PVD right foot. Patient seen today at around 11am waiting for MRI. +grade3-4 ulceration right 2nd toe medial aspect, -drainage today, +dusky toe 2nd toe right, -mal odor r/o om pvd cellulitis Vascular to evaluate and treat. MRI to r/o om. Betadine dressing to medial 2nd toe right. CRP to be ordered. Awaiting HGBA1c. Will consider HBO, Debridement and or amputation. Read and appreciated Vascular note.
[2017-08-12] MEDS ORDERED: PT OWN MED DRAWER 7, Y5N ONE (21:22)
[2017-08-13] MEDS: INSULIN SLIDING SCALE (NOVOLOG) 1 VIAL SQ SCH ×2 (06:45→11:37)
[2017-08-13 07:56] LABS: BASO % 0.3 % (0-2.0); EOS % 1.7 % (0-4.5); HEMATOCRIT 37.5 % (32.4-45.2); HEMOGLOBIN 12.4 GM/dL (10.7-15.3); LYMPH % 34.5 % (8-40); MCH 28.8 pg (25.7-33.7); MCHC 33.1 g/dl (32.0-36.0); MEAN CELL VOLUME 86.9 fl (80-96); MEAN PLT VOLUME 9.4 fl (7.5-11.1); MONO % 10.6 % (3.8-10.2); NEUT % 52.9 % (42.8-82.8); PLATELET COUNT 327 K/MM3 (134-434); RBC 4.31 M/mm3 (3.60-5.2); RDW 14.5 % (11.6-15.6); WHITE BLOOD COUNT 9.7 K/mm3 (4.0-10.0)
[2017-08-13] MEDS: metFORMIN HCL 500 MG TABLET (FP) PO SCH (08:41)
[2017-08-13] MEDS: INSULIN DETEMIR 100 UNITS/ML MDV SQ SCH (08:43)
[2017-08-13] MEDS: sitaGLIPtin PHOSPHATE 50 MG TABLET PO SCH (08:43)
--- NOTE | 2017-08-13 09:00 | PN ---
Progress Note (short form) - Note Progress Note: the patient refused MRI right foot yesterday, though the daughter was present. Not agreeing to have another MRI attemt today. Podiatry note appreciated. Spoke to ID. will D/c home on PO Augmentin. F/u at the office and [facility]. Vital Signs Temp 98.1 F 08/13/17 05:00 Pulse 86 08/13/17 05:00 Resp 20 08/13/17 05:00 BP 117/78 08/13/17 05:00 Pulse Ox 98 08/12/17 21:00 Intake & Output 08/12/17 08/12/17 08/13/17 11:59 23:59 11:59 Intake Total 400 800 Balance 400 800 Intake: IVPB 100 500 Oral 300 300 Other: Voiding Method Toilet Toilet Toilet # Unmeasured Voids Void 3 2 2 Bowel Movement No Laboratory Results - last 24 hr 08/11/17 08/12/17 08/12/17 06:12 06:00 09:32 WBC RBC Hgb Hct MCV MCH MCHC RDW Plt Count MPV Neutrophils % Lymphocytes % Monocytes % Eosinophils % Basophils % ESR 79 H POC Glucometer 161 Hemoglobin A1c % 10.8 H C-Reactive Protein 08/12/17 08/12/17 08/12/17 11:43 17:07 17:30 WBC RBC Hgb Hct MCV MCH MCHC RDW Plt Count MPV Neutrophils % Lymphocytes % Monocytes % Eosinophils % Basophils % ESR POC Glucometer 183 257 Hemoglobin A1c % C-Reactive Protein 0.5 H 08/12/17 08/13/17 08/13/17 21:35 06:00 06:26 WBC 9.7 RBC 4.31 Hgb 12.4 Hct 37.5 MCV 86.9 MCH 28.8 MCHC 33.1 RDW 14.5 Plt Count 327 D MPV 9.4 D Neutrophils % 52.9 Lymphocytes % 34.5 Monocytes % 10.6 H Eosinophils % 1.7 Basophils % 0.3 ESR POC Glucometer 248 100 Hemoglobin A1c % C-Reactive Protein Right 2nd toe the ulcer-dry, no discharge, good DP.TP B/L awake, alert.NAD no pain. lungs are clear heart S1s2 regular Abdomen soft, NT Current Active Problems Problem Status Onset Cellulitis Acute Diabetic foot infection Acute Diabetic ulcer of foot associated with diabetes mellitus due to underlying condition, limited to breakdown of skin Acute Hyperglycemia Acute Plan PO Augmentin and D/c home F/u at [facility]. Problem List - Problems (1) Diabetic foot infection Code(s): E11.69 - TYPE 2 DIABETES MELLITUS WITH OTHER SPECIFIED COMPLICATION; L08.9 - LOCAL INFECTION OF THE SKIN AND SUBCUTANEOUS TISSUE, UNSP (2) Hyperglycemia Code(s): R73.9 - HYPERGLYCEMIA, UNSPECIFIED
--- NOTE | 2017-08-13 09:02 | DS ---
Physical Examination Vital Signs: Vital Signs Temperature 98.1 F 08/13/17 05:00 Pulse Rate 86 08/13/17 05:00 Respiratory Rate 20 08/13/17 05:00 Blood Pressure 117/78 08/13/17 05:00 O2 Sat by Pulse Oximetry (%) 98 08/12/17 21:00 Constitutional: Yes: No Distress, Anxious Eyes: Yes: Conjunctiva Clear, EOM Intact HENT: Yes: Atraumatic, Normocephalic. No: Drooling, Epistaxis, Hoarseness Neck: Yes: Supple, Trachea Midline. No: Lymphadenopathy Cardiovascular: Yes: Regular Rate and Rhythm, S1, S2. No: Bradycardia, Tachycardia, Bruit, JVD Respiratory: Yes: Regular, CTA Bilaterally. No: Cough Gastrointestinal: Yes: Normal Bowel Sounds, Soft. No: Abdomen, Obese, Ascites ...Rectal Exam: Yes: Deferred Renal/: No: Anuria Extremities: No: Amputation, Calf Tenderness, Cold, Deformity Edema: No Peripheral Pulses WNL: Yes Integumentary: Yes: Pressure Ulcer (2nd right toe and bunion) Neurological: Yes: Alert, Oriented Labs: CBC, BMP 08/13/17 06:00 08/12/17 06:00 Discharge Summary Reason For Visit: DIABETIC FOOT INFECTION/HYPERGLYCEMIA Current Active Problems Cellulitis (Acute) Diabetic foot infection (Acute) Diabetic ulcer of foot associated with diabetes mellitus due to underlying condition, limited to breakdown of skin (Acute) Hyperglycemia (Acute) - Instructions Referrals: Kwabena Mckinnon MD [Primary Care Provider] - - Home Medications Comprehensive Discharge Medication List: Ambulatory Orders Aspirin 81 mg PO DAILY 08/10/17 Insulin (Novolog) [Novolog Flexpen] 0 units SQ ACHS PRN 08/10/17 Insulin Glargine,Hum.rec.anlog [Lantus Solostar PEN (NF)] 60 units SQ BID Metformin HCl [Glucophage] 1,000 mg PO BID 08/10/17 Rosuvastatin [Crestor -] 5 mg PO HS 08/10/17 Sitagliptin Phosphate [Januvia] 100 mg PO DAILY@0700 08/10/17
[2017-08-13] MEDS: CEFTRIAXONE 1 G/50 ML PREMIX 50 ML IVPB SCH (10:25)
[2017-08-13] MEDS: ASPIRIN 81 MG CHEWABLE TABLETS PO SCH (10:25)
[2017-08-13] MEDS ORDERED: INSULIN (NOVOLOG) ASPART 100 UNITS/ML 10ML VIAL ONE (11:29)
--- NOTE | 2017-08-13 12:06 | CONSULT ---
Consult - text type - Consultation Consultation Note: Patient seen in bed. Apparently she refused MRI. Being DC to home. Tmax 97.8. VSS wound has resolved medially on 2nd toe, +dry eschar, +improved cellulitis, - drainage, -mal odor, [id number]=81.8, toe looks better discoloration improved om? poorly controlled diabetes non complaint due to mental illness Recommend Triphasic or Indium 111 bone scan if patient cannot tolerate MRI. Will follow outpatient. Antibiotics as per ID. Post op shoe to bedside.
[2017-08-13 15:14] VITALS: BP 124/73; PULSE 90; TEMP 98.1
== END 2017-08-13 16:00 | disposition home or self-care (01) | DRG 300 ==
LOC: JER 15:57 → JERBED 21:46 → MERGE 21:46 → UNDOADMIN 23:44 → JERBED 23:44 → J8W 08-12 01:26
PROVIDERS: ADMIT Internal Medicine; ATTEND Internal Medicine
DX: E11.52 Type 2 diabetes mellitus with diabetic peripheral angiopathy with gangrene (principal); L03.115 Cellulitis of right lower limb; E11.65 Type 2 diabetes mellitus with hyperglycemia; E78.5 Hyperlipidemia, unspecified; F20.9 Schizophrenia, unspecified; E13.319 Other specified diabetes mellitus with unspecified diabetic retinopathy without macular edema; E11.69 Type 2 diabetes mellitus with other specified complication; L97.519 Non-pressure chronic ulcer of other part of right foot with unspecified severity; F31.9 Bipolar disorder, unspecified; E11.621 Type 2 diabetes mellitus with foot ulcer
CPT/HCPCS: 36415; 71045-TC-FY; 73630-TC-RT-FY; 80048; 80053; 82962; 83036; 83735; 84100; 85025; 85610; 85651; 85730; 86140; 87040; 93005; 93010; 99284-25; G0463-25